=== PATIENT | male | born 1960 | race African-American/Black ===

== ENCOUNTER 2021-12-22 14:09 | Inpatient (IN) | payer OTHER ==
[~2021-12-22] VITALS: Ht 170.2 cm; Wt 71.5 kg
[2021-12-22] MEDS ORDERED: ULTRAM50 MG PO (14:45)
[2021-12-22] MEDS ORDERED: AMBIEN5 MG PO (14:46)
--- NOTE | 2021-12-22 17:20 | NUR ---
Patient arrives to med surg unit via WC to room 114. Pt has occasional productive cough and states painful with inhalation and coughing, movement. 98% on RA. Hx admission and assessment complete. IV ABX infusing, IVF infusing. Pt oriented to room/call light system. Dinner ordered. Fresh water provided.
--- NOTE | 2021-12-22 18:29 | NUR ---
IVF infusing WNL. Pt snoring, in bed with eyes closed, awakens to voice. Visible sweat on patient forehead, chest. Temperature taken, 98.0 Oral. Pt was able to eat small amount of dinner. Provided with PRN tramadol, robitussin. Encouraged to rest. No needs at this time, call light in reach.
--- NOTE | 2021-12-22 19:20 | NUR ---
report from Marian razo, pt very sleepy, sweating - this rn provided fam for circulation of air. pt denies needs, void 200 ml clear urine, call light in reach and oriented to new nurse.
--- NOTE | 2021-12-22 20:55 | NUR ---
PT IV ALARMING, PT CURLED INTO POSITION, MOVED IV PUMP TO LEFT SIDE BED, STRAIGHTENED TUBING, NOW INFUSING. ASKED PT IF HE WAS COLD, SAID YES, WARM BLANKET PROVIDED.
--- NOTE | 2021-12-22 21:11 | NUR ---
PT. VITALS AND I/OS CHARTED. CALL LIGHT LEFT WITHIN REACH. NO OTHER IMMEDIATE NEEDS AT THIS TIME.
--- NOTE | 2021-12-22 22:20 | NUR ---
PROVIDED PT WITH A SANDWICH BOX, HUNGRY AFTER KITCHEN CLOSED, DENIES OTHER NEEDS, OCCASIONAL COUGH, IV FUSING.
--- NOTE | 2021-12-22 23:53 | NUR ---
eyes closed, resp even, call light in reach
--- NOTE | 2021-12-23 01:57 | NUR ---
pt awaken for vitals - denies needs dung dasilva gave warm blkt.
--- NOTE | 2021-12-23 05:33 | NUR ---
pt awaken for vitals and lab draw - tollerated both well, back to sleep with call light in reach.
--- NOTE | 2021-12-23 07:11 | EKG ---
[facility] [address] [place], [place] [address] Signed Normal sinus rhythm Biatrial enlargement Abnormal ECG No previous ECGs available Confirmed by JACKIE CHATTERJEE MD ([id number] on 12/23/2021 7:11:48 AM Electronically Signed By: JACKIE CHATTERJEE MD 12/23/21710 PATIENT NAME: SISI TRAN Electrocardiogram DATE OF : 62 PHYSICIAN: JACKIE CHATTERJEE MD REPORT #: [id number] REPORT IS CONFIDENTIAL AND NOT TO BE RELEASED WITHOUT AUTHORIZATION
--- NOTE | 2021-12-23 09:15 | NUR ---
REPORT RECEIVED FROM NIGHT RN AND PT. CARE RESUMED. PT. IS ALERT AND ORIENTED TO ALL. HE C/O FLANK AND CHEST PAIN WHEN COUGHING. DEMONSTRATED USE OF I.S. EDUCATION PROVIDED. AMBULATED WITH SBA TO THE CHAIR AND TOLERATED WELL. ASSESSMENT COMPLETED. PT. LEFT RESTING WITH CALL LIGHT IN REACH.
--- NOTE | 2021-12-23 09:17 | NUR ---
PTS 2ND COUSIN LEONEL CALLED FOR UPDATE ON PTS STATUS. PT STATES HE WOULD LIKE YOLANDA UPDATED. LEONEL UPDATED ON PT STATUS AND PLAN OF CARE. LEONEL STATES HIS QUESTIONS HAVE BEEN ANSWERED. NO ADDITONAL REQUESTS OR CONCERNS. LEONEL DECLINES TRANSFER OF PHONE CALL INTO PTS ROOM.
--- NOTE | 2021-12-23 09:57 | NUR ---
PATIENT IN CHAIR WATCHING TV AT THIS TIME. VITALS DONE BY RN. I&O'S CHARTED. WARM WASHCLOTH GIVEN. AM CARE DONE. CALL LIGHT IN REACH. NO FURTHER NEEDS AT THIS TIME.
[2021-12-23] MEDS ORDERED: COLCHICINE0.6 M1 PO (10:57)
[2021-12-23] MEDS ORDERED: HYDROCODON-ACE1 EA11 PO (10:58)
[2021-12-23] MEDS ORDERED: HYDROXYCHLOROQ300 MG PO (10:59)
[2021-12-23] MEDS ORDERED: METHYLPREDNISOLO4 MG PO (11:00)
--- NOTE | 2021-12-23 12:24 | NUR ---
LUNCH DELIVERD TO PT. PT RESTING WITH EYES CLOSED. AWAKENS TO VOICE AND MOVEMENT IN ROOM. ICE WATER REFILLED, JUICE PROVIDED PER PT REQUEST. PT REMAINS UP TO CHAIR FOR LUNCH. NO ADDITIONAL REQUESTS OR COMPLAINTS. CALL LIGHT WITHIN REACH.
--- NOTE | 2021-12-23 12:30 | NUR ---
Spoke with Rayshawn. He states he lives in [place] with his Grandmother, Ryley. 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 He was in [place] picking up a client when he became ill. He does not use any DME. He plans on dc to his grand- mothers home when discharged. There is no issue getting into his home.
--- NOTE | 2021-12-23 14:14 | NUR ---
Pt accidentally pulled IV while ambulating to bathroom, catheter tip intact, removed completely and wrapped. New IV started in R FA, 20g, IVF infusing WNL. Pt provided with robitussin per request, states he would like to take a nap. Call light in reach.
--- NOTE | 2021-12-23 14:30 | NUR ---
DR NINO JUST LEFT PTS' RM. PT ALERT, ORIENTED AND RESTING QUIETLY. HAD GOOD VISIT WITH PT-HE ADMITTED HE HAS NEVER BEEN HOSPITALIZED BEFORE. PT SOMEWHAT ANXIOUS, GAVE ENCOURAGEMENT. PT REQUESTED PRAYER, GAVE G.POST AND BLESSING. WILL FOLLOW
--- NOTE | 2021-12-23 14:30 | NUR ---
ROUNDING ON PT. HE STATES HE HAS BEEN USING I.S. REGULARLY. C/O RIGHT SIDED PAIN IN CHEST WHEN COUGHING OR DEEP BREATHING. PT. ENCOURAGED TO CONTINUE DEEP BREATHING AND COUGHING. ASSESSMENT COMPLETED.
--- NOTE | 2021-12-23 14:58 | NUR ---
MED REC COMPLETE
--- NOTE | 2021-12-23 18:24 | NUR ---
IN TO DO VITALS AND PATIENT WAS ON HANDS AND KNEES ON BED. PATIENT SAID "I WENT TO THE BATHROOM AND WHEN I GOT BACK TO BED GOT DIZZY AND WHEEZY. I DIDN'T WANT BOTHER YOU GUYS." CHECKED PATIENTS VITALS AND THEY WERE GOOD. ASKED PATIENT TO PLEASE CALL US ESPECIALLY AFTER THIS HAPPENING AND HE AGREED HE WOULD. RN NOTIFIED. I&O'S CHARTED. CALL LIGHT IN REACH. NO FURTHER NEEDS AT THIS TIME.
--- NOTE | 2021-12-23 19:25 | NUR ---
bedside report from Jazmine rn, pt remembers this RN from last shift and denies needs at this time. call light in reach - RA and resp even.
--- NOTE | 2021-12-23 21:27 | NUR ---
assesment complete - pt reports wanting to sleep - ambien offered and pt agreed - he takes at home. Cough syrup given po, enc. pt to take deep breaths and turn often.
--- NOTE | 2021-12-23 21:47 | NUR ---
LARA TRAN CALLED AND ASKED TO BE TRANSFERRED TO pt ROOM, pt OKAYED KJ, TRANSFERR COMPLETE.
--- NOTE | 2021-12-24 00:06 | NUR ---
pt unchanged, eyes closed, resp even, call light in reach.
--- NOTE | 2021-12-24 03:34 | NUR ---
no changes, pt resp even - quiet - Iv fusing wnl. call light in reach.
--- NOTE | 2021-12-24 05:19 | NUR ---
pt vitals, i/o and pain assessment done - po meds given for chest discomfort with inhale r/t current illness. iv fusing, void qs, call light in reach
--- NOTE | 2021-12-24 07:50 | NUR ---
REPORT RECEIVED FROM NIGHT RN AND PT. CARE RESUMED. PT. IS IN BED ON RIGHT SIDE WINCING IN PAIN. HE STATES RIGHT FLANK FEELS LIKE A "ZAYNAB HORSE" AND THE ONLY THING THAT HELPS IS SPLINTING WITH HIS HAND. O2 SAT IS 100% AND WHEEZING PRESENT THROUGHOUT RIGHT LUNG. RR IS 23. PT. GIVEN HEAT PACK. WILL UPDATE MD. AND ADMIN SCHEDULED PAIN MED.
--- NOTE | 2021-12-24 08:20 | NUR ---
Spoke with pt. States he feels better today. C/o pain in R chest, denies needs.
--- NOTE | 2021-12-24 09:30 | NUR ---
REPORT RECEIVED FROM NIGHT RN AND PT. CARE RESUMED. PT. IS ALERT AND ORIENTED. HE C/O RIGHT FLANK PAIN THAT IMPROVES WITH SPLINTING. 02 SAT 100% AND R. LUNG HAS WHEEZING THROUGHOUT. PT. AMBULATED WITH SBA TO CHAIR. DEMONSTRATED USE OF I.S. WILL CONTINUE TO MONITOR AND UPDATE MD.
--- NOTE | 2021-12-24 11:00 | NUR ---
PT BROUGHT WARM BLANKET AND C/O CHILLS. TEMP. IS 97.4. SALINE LOCKED FOR CT. PAIN MEDS ADMIN.
--- NOTE | 2021-12-24 13:34 | NUR ---
CONCERNED WITH PT AND HIS ABILITY TO DEAL WITH HIS HEALTH. GAVE ENCOURAGEMENT AND HAD GOOD VISIT WITH PT. HE ADMITTED HE IS FRIGHTENED. 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 WILL FOLLOW
--- NOTE | 2021-12-24 14:29 | NUR ---
PT. REPORTS RIGHT SIDE PAIN HAS IMPROVED. 02 SAT IS 100% AT REST. AMBULATED 1 LAP AROUND THE UNIT WITH SBA. 02 SAT WAS 100% AFTER AMBULATION BUT PATIENT WAS SOB, TACHYPNEIC AND DIZZY. ASSISTED BACK TO CHAIR. SANDWICH AND JUICE ORDERED FOR PT. ASSESSMENT COMPLETED. LEFT RESTING WITH CALL LIGHT IN REACH.
--- NOTE | 2021-12-24 19:05 | NUR ---
bedside report from Jazmine Da Silva. pt sitting up in room, denies needs, room air - talking on phone with not distress noted. call light in reach.
[2021-12-24] MEDS ORDERED: AMOX TR-K CLV1 EAC1 PO (19:36)
--- NOTE | 2021-12-24 19:58 | NUR ---
pt's FRIEND JAJA CORTEZ CALLED AND ASKED TO SPEAK TO pt, pt CURRENTLY ON THE PHONE AND WILL CALL FRIEND JAJA BACK.
--- NOTE | 2021-12-24 21:50 | NUR ---
in room for assessment, pt pleasant, denies needs - vitals and assessment done, no sob, pt on room air. call light in reach.
--- NOTE | 2021-12-25 01:05 | NUR ---
no pt changes, pt resp even, iv fusing well, urinal emptied.
--- NOTE | 2021-12-25 04:41 | NUR ---
pt sleeping soundly, iv bag replaced, i/o complete - new fresh water to pt and void 800 ml clear urine. vitals deferred at this time, pt resting.
--- NOTE | 2021-12-25 09:20 | NUR ---
PATIENT IN BED AFTER MEAL. VITALS AND I/O'S ARE COMPLETED. CALL LIGHT WITHIN REACH.
--- NOTE | 2021-12-25 09:45 | NUR ---
REPORT RECEIVED FROM NIGHT RN AND PT. CARE RESUMED. PT IS ALERT AND ORIENTED TO ALL. HE C/O CHEST PAIN WITH COUGHING. O2 SAT IS 100% ON R.A. ASSESSMENT COMPLETED AND MEDS ADMIN. PT. IS ANXIOUS ABOUT DISCHARGE. DISCUSSED DISCHARGE AND CONCERNS. PT. LEFT RESTING WITH CALL LIGHT IN REACH.
--- NOTE | 2021-12-25 12:10 | NUR ---
ALL DISCHARGE INSTRUCTIONS REVIEWED WITH PT. AND IV REMOVED WITH CATH INTACT. PT DENIES PAIN. VITALS STABLE.
== END 2021-12-25 12:37 | disposition home or self-care (01) | DRG 195 ==
LOC: ED 14:09 → MS 16:53
PROVIDERS: ADMIT Internal Medicine; ATTEND Internal Medicine
DX: J13 Pneumonia due to Streptococcus pneumoniae (principal); M32.9 Systemic lupus erythematosus, unspecified; M06.9 Rheumatoid arthritis, unspecified; Z20.822 Contact with and (suspected) exposure to COVID-19
CPT/HCPCS: 36415; 71045; 71260; 80048; 80053; 82553; 83605; 83735; 84484; 85025; 87502; 93005; 93010; A9270; C9803; J0456; J0696; J1650; J1885; J7030; Q9967; U0003